=== PATIENT | female | born 1985 | race African-American/Black ===

== ENCOUNTER 2017-08-18 14:31 | Emergency (ER) | payer MEDICAID ==
[2017-08-18 14:40] VITALS: BP 149/94; PULSE 87; RESP 18; TEMP 98.2; O2SAT 96
--- NOTE | 2017-08-18 14:57 | EDPHY ---
H & P Stated Complaint: R shoulder pain x 1 week HPI/ROS: CHIEF COMPLAINT: Bilateral shoulder pain HISTORY OF PRESENT ILLNESS: Patient complains of 1 week history of pain in the left shoulder and 3 days history of pain in the right shoulder. This is pin-pointed to the trapezius muscle on both sides. Gradual onset. Constant duration. Worse with palpation and when attempting to sleep. Pain is so severe it is hard for to elevate her shoulders. She has no bony tenderness of the shoulders or arms. No trauma or injury. No numbness, tingling or weakness. No midline neck pain. No neck stiffness. No headache. No other associated complaints or modifying factors. No improvement with ibuprofen [id number]. REVIEW OF SYSTEMS: Ten systems reviewed and are negative unless otherwise noted in the HPI PCP: [facility] PAST MEDICAL HISTORY: Hypertension, depression, acid reflux PAST SURGICAL HISTORY: Appendectomy 2011 SOCIAL HISTORY: Smoker. No alcohol. Occasional THC use FAMILY HISTORY: Noncontributory EXAMINATION General Appearance: Alert, no distress Head: normocephalic, atraumatic Eyes: Pupils equal and round, no conjunctival pallor or injection ENT, Mouth: Mucous membranes moist. Airway. Neck: Normal inspection, supple, tender to palpation in the paraspinous musculature and the trapezius muscles although it to the insertion. There is no midline tenderness. No step-off or deformity. No rigidity or meningismus. Fasciculations noted in the trapezius muscle bilaterally. Respiratory: No retractions or distress Cardiovascular: Regular rate. Symmetric radial pulses 2+ Back: non-tender of the thoracic or lumbar vertebrae, no bony abnormalities. There is tenderness of the trapezius bilaterally. Muscle spasm of the trapezius bilaterally Neurological: A&O, nonfocal, normal gait. Strength symmetric in the upper extremities. No wrist drop. Skin: Warm and dry, no rash. No petechiae or purpura Extremities: Nontender, no pedal edema. Range of motion is symmetric in the upper extremities. Psychiatric: Mood and affect normal DIFFERENTIAL DIAGNOSES: Including but not limited to muscle spasm, strain, radicular pain, dehydration, sprain MDM: 2:55 p.m. Bilateral trapezius pain and spasms. Pain is completely reproducible. No bony tenderness. No neck tenderness. No exertional pain. No neuro deficits. Treat symptomatically with anti-inflammatory and Flexeril. Follow up with [facility] for further care. ED precautions discussed. She is comfortable this plan and discharged home stable condition. Source: Patient Exam Limitations: No limitations - Medical/Surgical History Hx Asthma: No Hx Chronic Respiratory Disease: No Hx Diabetes: No Hx Cardiac Disease: No Hx Renal Disease: No Hx Cirrhosis: No Hx Alcoholism: No Hx HIV/AIDS: No Hx Splenectomy or Spleen Trauma: No Other PMH: appy, bronchitis. HTN, depression, prediabetic - Social History Smoking Status: Current every day smoker Constitutional: Initial Vital Signs Temperature (C) 98.2 F 08/18/17 14:38 Heart Rate 87 08/18/17 14:38 Respiratory Rate 18 08/18/17 14:38 Blood Pressure 149/94 H 08/18/17 14:38 O2 Sat (%) 96 08/18/17 14:38 O2 Delivery Mode Room Air Allergies/Adverse Reactions: No Known Allergies Allergy (Verified 04/30/16 11:39) Home Medications: Medication Instructions Recorded Ibuprofen [Motrin (*)] 800 mg PO Q6-8PRN #30 tab 06/09/16 Cyclobenzaprine [Flexeril 10 MG 10 mg PO TID PRN #17 tab 08/18/17 (*)] Naproxen 500 mg PO BID #14 tablet 08/18/17 Un Knownblood Pressure Med 08/18/17 Medical Decision Making - Data Points Medications Given: Discontinued Medications Cyclobenzaprine HCl (Flexeril) 10 mg PO EDNOW ONE Stop: 08/18/17 15:05 Last Admin: 08/18/17 15:10 Dose: 10 mg Departure - Departure Disposition: Home, Routine, Self-Care Clinical Impression: Trapezius muscle spasm Condition: Good Instructions: Muscle Spasm (ED) Additional Instructions: 1. Medications as prescribed as needed 2. Follow up with primary care physician 3. Ed preCautions as discussed Referrals: NONE *PRIMARY CARE P,. [Primary Care Provider] - As per Instructions [facility],. [Clinic] - As per Instructions Humberto Segura MD [Medical Doctor] - As per Instructions Prescriptions: Cyclobenzaprine [Flexeril 10 MG (*)] 10 mg PO TID PRN #17 tab PRN Reason: Spasms Naproxen 500 mg PO BID #14 tablet
[2017-08-18] MEDS ORDERED: CYCLOBENZAPRINE 10 MG TAB PO ONE (15:04)
== END 2017-08-18 15:12 | disposition home or self-care (01) ==
DX: M62.838 Other muscle spasm (principal); I10 Essential (primary) hypertension; F17.200 Nicotine dependence, unspecified, uncomplicated

== ENCOUNTER 2017-09-02 14:58 | Emergency (ER) | payer MEDICAID ==
--- NOTE | 2017-09-02 16:13 | EDPHY ---
H & P Stated Complaint: 1 MONTH NECK PAIN/SPASMS/WAS SUPPOSED TO GET SHOT YESTERDAY AT PC/MISSED AP Time Seen by Provider: 09/02/17 16:02 HPI/ROS: CHIEF COMPLAINT: Muscle spasm HISTORY OF PRESENT ILLNESS: The patient is a 31-year-old female who reports that she has been dealing with neck muscle spasm for the last month. She has been worked up at the [facility]. She is taking Flexeril, ibuprofen and naproxen. She was supposed to get a intramuscular injection yesterday but did not make her appointment. She comes to the ER today with severe pain. She states that it is bilateral but primarily on the left. No weakness or numbness. No paresthesias. No fevers or infections. No headache. REVIEW OF SYSTEMS: Constitutional: denies: chills, fever, recent illness, recent injury EENTM: denies: blurred vision, double vision, nose congestion Respiratory: denies: cough, shortness of breath Cardiac: denies: chest pain, irregular heart rate, lightheadedness, palpitations Gastrointestinal/Abdominal: denies: abdominal pain, diarrhea, nausea, vomiting, blood streaked stools Genitourinary: denies: dysuria, frequency, hematuria, pain Musculoskeletal: See HPI Skin: denies: lesions, rash, jaundice, bruising Neurological: denies: headache, numbness, paresthesia, tingling, dizziness, weakness Hematologic/Lymphatic: denies: blood clots, easy bleeding, easy bruising Immunologic/allergic: denies: HIV/AIDS, transplant EXAM: GENERAL: Tearful, well-appearing . HEAD: Atraumatic, normocephalic. EYES: Pupils equal round and reactive to light, extraocular movements intact, sclera anicteric, conjunctiva are normal. ENT: TMs normal, nares patent, oropharynx clear without exudates. Moist mucous membranes. NECK: Left trapezius muscle spasming it improves with massage. Normal range of motion, supple without lymphadenopathy or JVD. LUNGS: Breath sounds clear to auscultation bilaterally and equal. No wheezes rales or rhonchi. HEART: Regular rate and rhythm without murmurs, rubs or gallops. ABDOMEN: Soft, nontender, normoactive bowel sounds. No guarding, no rebound. No masses appreciated. BACK: No CVA tenderness, no spinal tenderness, step-offs or deformities EXTREMITIES: Normal range of motion, no pitting or edema. No clubbing or cyanosis. NEUROLOGICAL: Cranial nerves II through XII grossly intact. Normal speech, normal gait. 5/5 strength, normal movement in all extremities, normal sensation PSYCH: Normal mood, normal affect. SKIN: Warm, dry, normal turgor, no visible rashes or lesions. Source: Patient Exam Limitations: No limitations - Personal History LMP (Females 10-55): Now Current Tetanus/Diphtheria Vaccine: Yes - Medical/Surgical History Hx Asthma: No Hx Chronic Respiratory Disease: No Hx Diabetes: No Hx Cardiac Disease: No Hx Renal Disease: No Hx Cirrhosis: No Hx Alcoholism: No Hx HIV/AIDS: No Hx Splenectomy or Spleen Trauma: No Other PMH: appy, bronchitis. HTN, depression, prediabetic - Family History Significant Family History: No pertinent family hx - Social History Smoking Status: Current every day smoker Alcohol Use: Sober Drug Use: None Constitutional: Initial Vital Signs Temperature (C) 36.7 C 09/02/17 15:05 Heart Rate 90 09/02/17 15:05 Respiratory Rate 19 09/02/17 15:05 Blood Pressure 151/105 H 09/02/17 15:05 O2 Sat (%) 98 09/02/17 15:05 O2 Delivery Mode Room Air Allergies/Adverse Reactions: No Known Allergies Allergy (Verified 09/02/17 15:04) Home Medications: Medication Instructions Recorded Ibuprofen [Motrin (*)] 800 mg PO Q6-8PRN #30 tab 06/09/16 Cyclobenzaprine [Flexeril 10 MG 10 mg PO TID PRN #17 tab 08/18/17 (*)] Naproxen 500 mg PO BID #14 tablet 08/18/17 Un Knownblood Pressure Med 08/18/17 Medical Decision Making Procedures: Intramuscular injection given to left trapezius muscle near C7. 6 cc of 0.5% bupivacaine distributed. Patient tolerated the procedure well. No complications. ED Course/Re-evaluation: The patient was given an intramuscular injection of 6 cc of 0.5% bupivacaine. Her symptoms improved slightly. I told her that it would be likely take an hour. She would like to go home. She will follow up with the [facility] from here. I gave her strict return precautions including any type of paralysis or weakness or numbness. Differential Diagnosis: Partial list of the Differential diagnosis considered include but were not limited to; muscle spasm, radiculopathy, degenerative disc disease and although unlikely based on the history and physical exam, I also considered infection, paralysis, meningitis, acute coronary disease. I discussed these differential diagnoses and the plan with the patient as well as the usual and expected course. The patient understands that the diagnosis is provisional and that in medicine we are not always correct and that further workup is often warranted. Usual and customary warnings were given. All of the patient's questions were answered. The patient was instructed to return to the emergency department should the symptoms at all worsen or return, otherwise to followup with the physician as we discussed. Departure - Departure Disposition: Home, Routine, Self-Care Clinical Impression: Cervical paraspinous muscle spasm Condition: Fair Instructions: Neck Pain (ED) Referrals: UNKNOWN,DOCTOR [Other] - As per Instructions [facility],. [Clinic] - As per Instructions
[2017-09-02 16:37] VITALS: BP 145/81; PULSE 89; RESP 16; TEMP 98.6; O2SAT 97
== END 2017-09-02 16:40 | disposition home or self-care (01) ==
PROC: 3E023GC Introduction of Other Therapeutic Substance into Muscle, Percutaneous Approach (ICD-10-PCS; principal; 2017-09-02)
DX: M62.838 Other muscle spasm (principal); I10 Essential (primary) hypertension; F17.200 Nicotine dependence, unspecified, uncomplicated

== ENCOUNTER 2018-03-04 17:38 | Emergency (ER) | payer MEDICAID ==
[2018-03-04] MEDS ORDERED: DEXAMETHASONE 10 MG/ML VIAL IVP ONE (17:55)
[2018-03-04] MEDS ORDERED: NS 500 ML IV ONE (17:55)
[2018-03-04] MEDS ORDERED: METOCLOPRAMIDE 10 MG/2 ML VIAL IVP ONE (17:55)
[2018-03-04] MEDS ORDERED: KETOROLAC 30 MG/1 ML SDV IVP ONE (17:55)
--- NOTE | 2018-03-04 18:01 | EDPHY ---
H & P Time Seen by Provider: 03/04/18 17:40 HPI/ROS: HPI Headache. 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 She reports that at 3:30 p.m. 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 She reports she has had photophobia from it. Some nausea but no vomiting. She reports prior history of migraine headaches but has not had a migraine headache in some time. She reports this headache is similar but more intense to her previous migraine headaches. No neck pain. She has not had a fever. ROS: Constitutional: No fever, no chills. No weakness. Eyes: No discharge. No changes in vision. As above. ENT: No sore throat. No nasal congestion or rhinorrhea. Respiratory: No cough. No shortness of breath. Cardiac: No chest pain, no palpitations. Gastrointestinal: No abdominal pain, no vomiting, no diarrhea. Genitourinary: No hematuria. No dysuria or increased frequency with urination. Musculoskeletal: No back pain. No neck pain. No myalgias or arthralgias. Skin: No rashes. Neurological: As above. No focal weakness or altered sensation. Past medical history: Prediabetic, obesity, hypertension, depression, appendectomy. Social history: Nonsmoker. No alcohol. Here by herself. Physical Exam: General Appearance: Alert, eyes closed but opens spontaneously, she appears uncomfortable. This patient is responding to questions appropriately and in full sentences. This patient appears well-hydrated and well-nourished. Eyes: Pupils equal and round and reactive to light at 3-2 mm bilaterally, no pallor or injection. No lid edema, erythema or injection. Mild photophobia. No nystagmus. Head: Normocephalic atraumatic. Respiratory: There are no retractions, lungs are clear to auscultation with good air movement bilaterally. Cardiovascular: Regular rate and rhythm. No murmur. Gastrointestinal: Abdomen is soft and nontender, no masses, bowel sounds normal. No focal tenderness at McBurney's point. No Perez sign. Neurological: Motor sensory function is grossly intact. Cranial nerves are normal. Gait is normal. Skin: Warm and dry, no rashes. Musculoskeletal: Neck is supple and nontender. No pain on flexion of her neck. No tenderness or nodules noted on palpation over the temporal area. Extremities are symmetrical. All joints range without pain or impingement. Psychiatric: No agitation. No depression. Database: EKG: Imaging: CT brain without contrast: Negative. Results were discussed with staff radiologist Dr. Tristin Lee. Procedures: Emergency department course: IV placed. She was placed on a monitor. She was started on IV normal saline with 500 cc to be given over the next hour. She consents to CT imaging. She was initially given 10 mg of IV Decadron, 10 mg of IV Reglan, 25 mg of IV Benadryl and 30 mg of IV Toradol. No contraindications to NSAIDs. No history of renal dysfunction or peptic ulcer disease. 7:50 p.m., patient re-evaluated. Her headache has completely resolved. She is feeling much better. She does feel comfortable going home at this time. Repeat neurologic Assessment is nonfocal. I discussed follow-up with her primary care physician on Wednesday for re-evaluation. Return to emergency department precautions over the weekend were thoroughly reviewed with her. All of her questions were answered. She was discharged home in good condition with a sober friend. Differential Diagnosis: The differential diagnosis on this patient includes but is not limited to migraine headache. Sagittal sinus thrombosis, cavernous sinus thrombosis, subarachnoid hemorrhage, meningitis, encephalitis, temporal arteritis unlikely. This represents a partial list of diagnoses considered. These considerations are based on history, physical exam, past history, reassessment and diagnostic testing. Smoking Status: Current every day smoker Constitutional: Initial Vital Signs Temperature (C) 36.4 C 03/04/18 17:49 Heart Rate 86 03/04/18 17:49 Respiratory Rate 20 03/04/18 17:49 Blood Pressure 143/102 H 03/04/18 17:49 O2 Sat (%) 96 03/04/18 17:49 O2 Delivery Mode Room Air Allergies/Adverse Reactions: No Known Allergies Allergy (Verified 09/02/17 15:04) Home Medications: Medication Instructions Recorded Ibuprofen [Motrin (*)] 800 mg PO Q6-8PRN #30 tab 06/09/16 Cyclobenzaprine [Flexeril 10 MG 10 mg PO TID PRN #17 tab 08/18/17 (*)] Naproxen 500 mg PO BID #14 tablet 08/18/17 HCTZ (*) 03/04/18 Wellbutrin Sr 03/04/18 Medical Decision Making - Diagnostics Imaging Results: Imaging Impressions Head CT 03/04/18 17:55 Impression: There is no acute abnormality identified on this unenhanced CT evaluation. If there is further clinical concern regarding the patient's symptoms, MR imaging is suggested, if not otherwise contraindicated. Findings were discussed with Rene Bradford MD at 18:15, on 03/04/2018. - Data Points Medications Given: Discontinued Medications Dexamethasone (Decadron Injection) 10 mg IVP EDNOW ONE Stop: 03/04/18 17:56 Last Admin: 03/04/18 18:19 Dose: 10 mg Diphenhydramine HCl (Benadryl Injection) 25 mg IVP EDNOW ONE Stop: 03/04/18 17:56 Last Admin: 03/04/18 18:17 Dose: 25 mg Sodium Chloride (Ns) 500 mls @ 0 mls/hr IV ONCE ONE; Wide Open PRN Reason: Protocol Stop: 03/04/18 17:56 Last Admin: 03/04/18 18:18 Dose: 500 mls Ketorolac Tromethamine (Toradol) 30 mg IVP EDNOW ONE Stop: 03/04/18 17:56 Last Admin: 03/04/18 18:19 Dose: 30 mg Metoclopramide HCl (Reglan Injection) 10 mg IVP EDNOW ONE Stop: 03/04/18 17:56 Last Admin: 03/04/18 18:15 Dose: 10 mg Departure - Departure Disposition: Home, Routine, Self-Care Clinical Impression: Headache Condition: Good Instructions: Acute Headache (ED) Additional Instructions: Read and follow provided instructions. Follow-up with your primary care physician on Wednesday for re-evaluation. Keep well hydrated. Get plenty of rest. Return to the emergency department for return of headache, fever, neck pain, vomiting or other serious concerns. Referrals: Patient,NotPresent [Unknown] - As per Instructions
[2018-03-04 19:59] VITALS: BP 141/70
== END 2018-03-04 19:59 | disposition home or self-care (01) ==
LOC: EDUNIT#
DX: R51 Headache (principal); I10 Essential (primary) hypertension; E86.9 Volume depletion, unspecified; F17.200 Nicotine dependence, unspecified, uncomplicated
CPT/HCPCS: 96374; J1100; J1200; J1885; J2765